=== PATIENT | female | born 1970 | race Caucasian/White ===

== ENCOUNTER 2021-05-18 08:41 | Outpatient (CLI) | payer SELFPAY ==
[~2021-05-18] VITALS: Ht 152.4 cm; Wt 94.3 kg
[2021-05-18 09:48] VITALS: BP 110/80
[2021-05-18] MEDS ORDERED: BAMLANIVIMAB 700 MG/ETESEVIMAB 1,400 MG IN NS IV ONE ×3 (10:00)
[2021-05-18] MEDS ORDERED: diphenhydrAMINE 50 MG/ML INJ (BENADRYL) IV PRN (10:00)
[2021-05-18] MEDS ORDERED: ACETAMINOPHEN 500 MG TAB (TYLENOL) PO PRN (10:00)
[2021-05-18] MEDS ORDERED: ONDANSETRON 4 MG/2 ML (SDV) Z0FRAN IV PRN (10:00)
[2021-05-18] MEDS ORDERED: EPINEPHrine INJECTION 1 MG/ML AMP IM PRN (10:00)
[2021-05-18 11:26] VITALS: BP 118/83
== END 2021-05-18 11:26 | disposition home or self-care (01) ==
LOC: INFUSION 08:41
PROVIDERS: ATTEND Registered Nurse
DX: U07.1 COVID-19 (principal)